=== PATIENT | male | born 1995 | race Caucasian/White ===

== ENCOUNTER 2017-10-02 07:42 | Emergency (ER) | payer BC ==
[~2017-10-02] VITALS: Ht 180.3 cm; Wt 65.9 kg
[2017-10-02 07:44] VITALS: BP 116/79
[2017-10-02] MEDS ORDERED: TETanus/Pertussis (Acell)/Diphther VAC/PF (Tdap-Adult) 0.5ml syringe IM ONE (08:15)
[2017-10-02] MEDS ORDERED: LIDOcaine 1.5% w/epinephrine 1:200,000 5ml ampul IJ ONE (08:15)
[2017-10-02] MEDS ORDERED: CEPH-572 PO (09:09)
[2017-10-02] MEDS ORDERED: TRAM50TA2 PO (09:09)
== END 2017-10-02 09:38 | disposition home or self-care (01) ==
LOC: ER 07:42
DX: S91.012A Laceration without foreign body, left ankle, initial encounter (principal); Z79.899 Other long term (current) drug therapy; W29.3XXA Contact with powered garden and outdoor hand tools and machinery, initial encounter; Y93.89 Activity, other specified; Y92.89 Other specified places as the place of occurrence of the external cause; Y99.8 Other external cause status
CPT/HCPCS: 12002; 90471; 90715; 99283; A6255; A6449; J3490; L4360